=== PATIENT | male | born 2000 | race Hispanic/Latino ===

== ENCOUNTER 2020-09-19 13:33 | Emergency (ER) | payer SELFPAY ==
--- OUTSIDE RECORDS SUMMARY | 2020-09-19 13:36 | XMS REPORT | Continuity of Care Document ---
:2000 Author Organization [facility] t Address [address] [place] [address] [address]. [address] [place] [address] Care Team Providers Name Role Phone Lab, Fam Pob I Attending Clinician Unavailable Problems This patient has no known problems. Allergies, Adverse Reactions, Alerts This patient has no known allergies or adverse reactions. Medications This patient has no known medications. Procedures This patient has no known procedures. Encounters Start End Encounter Admission Attending Care Care Encounter Source Date/Time Date/Time Type Type Clinicians Facility Department ID 2020-03-10 2020-03-10 Laboratory Lab, [facility] [id number] 15:28:55 15:48:55 Only Fam Pob I [facility] [id number] [place] [id number] [phone] [address] Results This patient has no known results.
[2020-09-19 14:30] LABS: Absolute Lymphocytes (CBC) 2.6 K/uL (0.7-4.9); Basophils % 0.4 % (0-1.3); Lymphocytes % 25.8 % (15.3-44.8); MPV 8.4 fL (7.6-11.3); RBC Red Blood Cell Count 5.03 M/uL (4.33-5.43)
[2020-09-19 14:31] LABS: Protime INR 0.94
[2020-09-19 14:48] LABS: ALT/SGPT 72 U/L (12-78); AST/SGOT 28 U/L (15-37); Albumin 3.8 g/dL (3.4-5.0); Alkaline Phosphatase 117 U/L (45-117); BUN Blood Urea Nitrogen 8 mg/dL (7-18); Bicarbonate 26 mmol/L (21-32); Bilirubin Direct 0.1 mg/dL (0-0.2); Bilirubin Total 0.5 mg/dL (0.2-1.0); Glucose Level 96 mg/dL (74-106); Magnesium 2.2 mg/dL (1.8-2.4); NT PRO-BNP 27 pg/mL (<125); Potassium 3.7 mmol/L (3.5-5.1); Protein, Total 7.7 g/dL (6.4-8.2); Sodium Level 143 mmol/L (136-145); Troponin (Emerg Dept Use Only) < 0.02 ng/mL (0.0-0.045)
--- NOTE | 2020-09-19 14:54 | RAD REPORT ---
EXAM DESCRIPTION: RAD - Chest Single View - 09/19/2020 2:30 pm CLINICAL HISTORY: CHEST PAIN Chest pain. COMPARISON: No comparisons FINDINGS: Portable technique limits examination quality. The lungs are grossly clear. The heart is normal in size. No displaced fractures. IMPRESSION: No acute intrathoracic process suspected.
[2020-09-19 15:23] LABS: Barbiturates NEGATIVE (NEGATIVE); Benzodiazepines NEGATIVE (NEGATIVE); Cocaine NEGATIVE (NEGATIVE); METHAMPHETAM NEGATIVE (NEGATIVE); Methadone NEGATIVE (NEGATIVE); Opiates NEGATIVE (NEGATIVE); Phencyclidine NEGATIVE (NEGATIVE); THC Cannibis NEGATIVE (NEGATIVE)
[2020-09-19] MEDS ORDERED: KETOROLAC 30 MG/ML INJ ONE (15:35)
--- NOTE | 2020-09-19 15:46 | RAD REPORT ---
EXAM DESCRIPTION: CT - Angio Aorta For Dissection - 09/19/2020 3:30 pm CLINICAL HISTORY: Chest pain radiating to the back. left arm numbness;Chest pain COMPARISON: No comparisons TECHNIQUE: CT angiography of the aorta was performed with MIPs. All CT scans are performed using dose optimization technique as appropriate and may include automated exposure control or mA/KV adjustment according to patient size. FINDINGS: A left aortic arch is present with normal branching pattern of the great vessels.No acute aortic finding is seen such as aneurysm, penetrating ulcer or dissection. The celiac axis, SMA, LYLE and renal arteries are patent. No evidence of pulmonary embolism. The lungs are clear. The liver demonstrates no focal mass or biliary dilatation.The spleen, pancreas, adrenal glands and k idneys are within normal limits for arterial phase imaging. No bowel obstruction, free fluid or abscess.No pathologic enlarged lymphadenopathy identified. No fracture or worrisome bone lesion seen. IMPRESSION: No acute aortic finding is demonstrated.
--- NOTE | 2020-09-19 15:54 | EDPHYS ---
Physician Documentation [facility] Name: Levy Stanley Age: 20 yrs Sex: Male : 2000 Arrival Date: 09/19/2020 Time: 13:35 Bed 26 Private MD: ED Physician Holden Mercedes HPI: 09/19 14:05 This 20 yrs old Male presents to ER via Ambulatory with complaints of Chest cp Pressure, Numbness Of Arm. 14:05 The patient or guardian reports chest pain that is located primarily in the anterior cp chest wall, left. The pain radiates to the left shoulder, left neck. Associated signs and symptoms: Pertinent positives: numbness of left arm, Pertinent negatives: abdominal pain, cough, diaphoresis, headache, lower extremity pain, lower extremity swelling, near syncope, palpitations, shortness of breath, syncope, vomiting. The chest pain is described as a pressure. 14:05 Duration: The patient or guardian reports multiple episodes, that are intermittent. cp Patient reports initial episode of chest pain started this morning at 0730 while at work, went away and returned this afternoon. Pain continues in ED but is improved. Historical: - Allergies: 14:00 No Known Allergies; em - PMHx: 14:00 None; em - PSHx: 14:00 None; em - Immunization history:: Adult Immunizations up to date. - Social history:: Smoking status: Patient denies any tobacco usage or history of. ROS: 14:10 Constitutional: Negative for body aches, chills, fever, poor PO intake. cp 14:10 Eyes: Negative for injury, pain, redness, and discharge. cp 14:10 ENT: Negative for ear pain, sore throat, difficulty swallowing, difficulty handling cp secretions. 14:10 Cardiovascular: Positive for chest pain, Negative for edema, palpitations. 14:10 Respiratory: Negative for cough, shortness of breath, wheezing. 14:10 Abdomen/GI: Negative for abdominal pain, nausea, vomiting, and diarrhea, constipation. 14:10 Back: Negative for pain at rest, pain with movement, radiated pain. 14:10 : Negative for urinary symptoms, flank pain, testicular pain 14:10 Neuro: Positive for altered mental status, dizziness, headache, numbness, syncope, cp weakness, of the left arm. 14:10 All other systems are negative. Exam: 14:15 Constitutional: The patient appears in no acute distress, alert, awake, cp non-diaphoretic, non-toxic, well developed, well nourished. 14:15 Head/Face: Normocephalic, atraumatic. cp 14:15 Eyes: Periorbital structures: appear normal, Conjunctiva: normal, no exudate, no injection, Sclera: no appreciated abnormality, Lids and lashes: appear normal, bilaterally. 14:15 ENT: External ear(s): are unremarkable, Nose: is normal, Mouth: Lips: moist, Oral mucosa: moist, Posterior pharynx: Airway: no evidence of obstruction, patent. 14:15 Neck: ROM/movement: is normal, is supple, no meningismus, no nuchal rigidity. 14:15 Chest/axilla: Inspection: normal, Palpation: is normal, no crepitus, no tenderness. 14:15 Cardiovascular: Rate: normal, Rhythm: regular, Heart sounds: murmur, not appreciated, Edema: is not appreciated, JVD: is not appreciated. 14:15 Respiratory: the patient does not display signs of respiratory distress, Respirations: normal, no use of accessory muscles, no retractions, labored breathing, is not present, Breath sounds: are clear throughout, no decreased breath sounds, no stridor, no wheezing. 14:15 Abdomen/GI: Inspection: abdomen appears normal, Bowel sounds: active, all quadrants, Palpation: abdomen is soft and non-tender, in all quadrants. 14:15 Back: pain, is absent, ROM is normal. 14:15 Skin: no rash present. 14:15 Neuro: Orientation: to person, place \T\ time. Mentation: is normal, Cerebellar function: is grossly normal, Motor: moves all fours, strength is normal, Sensation: no obvious gross deficits. 14:17 ECG was reviewed by the Attending Physician. cp Vital Signs: 13:58 BP 139 / 76; Pulse 85; Resp 18; Temp 98.8; Pulse Ox 99% on R/A; Weight 92.53 kg; Height em 5 ft. 5 in. (165.10 cm); Pain 6/10; 14:59 BP 138 / 88 LA; ca1 14:59 BP 116 / 68 RA; ca1 15:53 BP 127 / 75; Pulse 71; Resp 16 S; Pulse Ox 100% on R/A; ca1 13:58 Body Mass Index 33.95 (92.53 kg, 165.10 cm) em MDM: 14:08 Patient medically screened. cp 14:30 Differential diagnosis: abnormal EKG, acute myocardial infarction, cholecystitis, cp Cholelithiasis costochondritis, pericarditis, pleurisy, pneumonia, pneumothorax, pulmonary embolus, thoracic aortic disection. 15:53 Data reviewed: vital signs, nurses notes, lab test result(s), EKG, radiologic studies, cp CT scan, plain films, and as a result, I will discharge patient. 15:53 Test interpretation: by ED physician or midlevel provider: ECG, plain radiologic cp studies. Counseling: I had a detailed discussion with the patient and/or guardian regarding: the historical points, exam findings, and any diagnostic results supporting the discharge/admit diagnosis, lab results, radiology results, to return to the emergency department if symptoms worsen or persist or if there are any questions or concerns that arise at home. 15:54 Special discussion: Based on the patient's history, exam, and Dx evaluation, there is cp no indication for emergent intervention or inpatient Tx. It is understood by the patient/guardian that if the Sx's persist or worsen they need to return immediately for re-evaluation. 09/19 14:02 Order name: Basic Metabolic Panel; Complete Time: 14:58 cp 09/19 14:58 Interpretation: Normal except: CL 108. cp 09/19 14:02 Order name: CBC with Diff; Complete Time: 14:58 cp 09/19 14:02 Order name: LFT's; Complete Time: 14:58 cp 09/19 14:59 Interpretation: Normal except: GLOB 3.9; A/G 1.0. cp 09/19 14:02 Order name: Magnesium; Complete Time: 14:58 cp 09/19 14:02 Order name: NT PRO-BNP; Complete Time: 14:58 cp 09/19 14:02 Order name: PT-INR; Complete Time: 14:58 cp 09/19 14:02 Order name: Troponin (emerg Dept Use Only); Complete Time: 14:58 cp 09/19 14:02 Order name: XRAY Chest (1 view); Complete Time: 14:58 cp 09/19 14:02 Order name: UDS; Complete Time: 15:47 cp 09/19 15:48 Interpretation: Reviewed. cp 02 14:08 Order name: D-Dimer; Complete Time: 15:47 cp 09/19 14:08 Order name: Lipase; Complete Time: 15:47 cp 09/19 15:03 Order name: CT Aorta for Dissection; Complete Time: 15:48 cp 09/19 16:11 Order name: Urine Dipstick--Ancillary (enter results) eb 09/19 14:02 Order name: EKG; Complete Time: 14:04 cp 09/19 14:02 Order name: Cardiac monitoring; Complete Time: 14:19 cp 09/19 14:02 Order name: EKG - Nurse/Tech; Complete Time: 14:12 cp 09/19 14:02 Order name: IV Saline Lock; Complete Time: 14:19 cp 09/19 14:02 Order name: Labs collected and sent; Complete Time: 14:19 cp 09/19 14:02 Order name: O2 Per Protocol; Complete Time: 14:19 cp 09/19 14:02 Order name: O2 Sat Monitoring; Complete Time: 14:19 cp 09/19 14:08 Order name: Blood Pressure Recheck: bilateral upper extremity; Complete Time: 14:59 cp EC:17 Rate is 73 beats/min. Rhythm is regular. AR interval is normal. QRS interval is normal. cp QT interval is normal. T waves are Inverted in leads III, aVR. Interpreted by me. Reviewed by me. Administered Medications: 15:20 Drug: TORadol - Ketorolac 15 mg Route: IVP; Site: right antecubital; ca1 16:00 Follow up: Response: No adverse reaction; Pain is decreased ca1 Disposition: 16:35 Co-signature as Attending Physician, Holden Mercedes MD. rn Disposition: 09/19/20 15:54 Discharged to Home. Impression: Other chest pain, Paresthesia of skin - Left Arm. - Condition is Stable. - Discharge Instructions: Nonspecific Chest Pain, Paresthesia. - Prescriptions for Ibuprofen 800 mg Oral Tablet - take 1 tablet by ORAL route every 8 hours As needed take with food; 30 tablet. - Medication Reconciliation Form, Thank You Letter, Antibiotic Education, Prescription Opioid Use, Work release form form. - Follow up: Private Physician; When: 2 - 3 days; Reason: Recheck today's complaints. - Problem is new. - Symptoms have improved. - Notes: May return to work with no restrictions 09-22-2020 Signatures: Dispatcher [employer] Karl Mendoza, RN RN Holden Lan MD MD rn Page, Corey, PA PA cp Nahun, Lexi, RN RN ca1 Corrections: (The following items were deleted from the chart) 16:14 15:54 09/19/2020 15:54 Discharged to Home. Impression: Other chest pain; Paresthesia of ca1 skin - Left Arm. Condition is Stable. Forms are Medication Reconciliation Form, Thank You Letter, Antibiotic Education, Prescription Opioid Use. Follow up: Private Physician; When: 2 - 3 days; Reason: Recheck today's complaints. Problem is new. Symptoms have improved. cp
--- NOTE | 2020-09-19 15:54 | ER ---
Nurse's Notes [facility] Name: Levy Stanley Age: 20 yrs Sex: Male : 2000 Arrival Date: 09/19/2020 Time: 13:35 Bed 26 Private MD: Diagnosis: Other chest pain;Paresthesia of skin-Left Arm Presentation: 09/19 13:58 Chief complaint: Patient states: left sided chest pain that started this morning at em 0730, also reports left sided arm numbness, denies N/V or fever. Coronavirus screen: Client denies travel out of the [place] in the last 14 days. Ebola Screen: Patient negative for fever greater than or equal to 101.5 degrees Fahrenheit, and additional compatible Ebola Virus Disease symptoms Patient denies exposure to infectious person. Patient denies travel to an Ebola-affected area in the 21 days before illness onset. No symptoms or risks identified at this time. Initial Sepsis Screen: Does the patient meet any 2 criteria? No. Patient's initial sepsis screen is negative. Does the patient have a suspected source of infection? No. Patient's initial sepsis screen is negative. Risk Assessment: Do you want to hurt yourself or someone else? Patient reports no desire to harm self or others. Onset of symptoms was September 19, 2020. 13:58 Method Of Arrival: Ambulatory em 13:58 Acuity: AGUSTIN 3 em Historical: - Allergies: 14:00 No Known Allergies; em - PMHx: 14:00 None; em - PSHx: 14:00 None; em - Immunization history:: Adult Immunizations up to date. - Social history:: Smoking status: Patient denies any tobacco usage or history of. Screenin:10 Abuse screen: Denies threats or abuse. Denies injuries from another. Nutritional ca1 screening: No deficits noted. Tuberculosis screening: No symptoms or risk factors identified. Fall Risk IV access (20 points). Assessment: 14:10 General: Appears in no apparent distress. comfortable, Behavior is calm, cooperative, ca1 appropriate for age. Pain: Complains of pain in anterior aspect of left upper chest Pain radiates to left arm Pain currently is 6 out of 10 on a pain scale. Pain began this morning Is intermittent. Neuro: Level of Consciousness is awake, alert, obeys commands, Oriented to person, place, time, situation, Appropriate for age. Cardiovascular: Heart tones S1 S2 present Capillary refill < 3 seconds Patient's skin is warm and dry. Rhythm is sinus rhythm. Respiratory: Airway is patent Respiratory effort is even, unlabored, Breath sounds are clear bilaterally. GI: Abdomen is round non-distended, Bowel sounds present X 4 quads. Abd is soft and non tender X 4 quads. : No signs and/or symptoms were reported regarding the genitourinary system. EENT: No signs and/or symptoms were reported regarding the EENT system. Derm: Skin is intact, is healthy with good turgor, Skin is pink, warm \T\ dry. Musculoskeletal: Circulation, motion, and sensation intact. Capillary refill < 3 seconds. 15:53 Reassessment: Patient appears in no apparent distress at this time. Patient and/or ca1 family updated on plan of care and expected duration. Pain level reassessed. Patient is alert, oriented x 3, equal unlabored respirations, skin warm/dry/pink. Vital Signs: 13:58 BP 139 / 76; Pulse 85; Resp 18; Temp 98.8; Pulse Ox 99% on R/A; Weight 92.53 kg; Height em 5 ft. 5 in. (165.10 cm); Pain 6/10; 14:59 BP 138 / 88 LA; ca1 14:59 BP 116 / 68 RA; ca1 15:53 BP 127 / 75; Pulse 71; Resp 16 S; Pulse Ox 100% on R/A; ca1 13:58 Body Mass Index 33.95 (92.53 kg, 165.10 cm) em ED Course: 13:35 Patient arrived in ED. as 14:00 Triage completed. em 14:00 Arm band placed on. em 14:02 Nelson Lyn PA is PHCP. cp 14:02 Holden Mercedes MD is Attending Physician. cp 14:03 Lexi Garnica RN is Primary Nurse. ca1 14:10 Patient has correct armband on for positive identification. Placed in gown. Bed in low ca1 position. Call light in reach. Side rails up X2. complex human resources manager on. Pulse ox on. NIBP on. Warm blanket given. 14:19 No provider procedures requiring assistance completed. Initial lab(s) drawn, by al, ca1 sent to lab. Inserted saline lock: 20 gauge in right antecubital area, using aseptic technique. Blood collected. Patient maintains SpO2 saturation greater than 95% on room air. 14:30 XRAY Chest (1 view) In Process Unspecified. EDMS 14:57 UDS Sent. ca1 15:30 CT Aorta for Dissection In Process Unspecified. EDMS 16:13 IV discontinued, intact, bleeding controlled, No redness/swelling at site. Pressure ca1 dressing applied. Administered Medications: 15:20 Drug: TORadol - Ketorolac 15 mg Route: IVP; Site: right antecubital; ca1 16:00 Follow up: Response: No adverse reaction; Pain is decreased ca1 Outcome: 15:54 Discharge ordered by MD. cp 16:14 Discharged to home ambulatory. ca1 16:14 Condition: stable 16:14 Discharge instructions given to patient, Instructed on discharge instructions, follow up and referral plans. medication usage, Demonstrated understanding of instructions, follow-up care, medications, Prescriptions given X 1. 16:14 Patient left the ED. ca1 Signatures: Dispatcher [employer] Karl Mendoza, RN RN Ciera Phillips Corey, PA PA cp Acob, Cheryl RN RN ca1
[2020-09-19 16:20] VITALS: TEMP 98.8
[2020-09-19 16:22] VITALS: BP 127/75; O2SAT 100
[2020-09-19 17:35] LABS: Urine Blood NEGATIVE (NEG); Urine Glucose NEGATIVE (NEG); Urine Protein NEGATIVE (NEG); Urine pH 7.5 (5.0-7.0)
== END 2020-09-19 16:14 | disposition home or self-care (01) ==
LOC: ER 13:33
DX: R20.2 Paresthesia of skin (principal)
CPT/HCPCS: 36415; 71045; 71275; 74175; 80048; 80076; 80307; 81003; 83690; 83735; 83880; 84484; 85025; 85379; 85610; 93005; 96374; 99285; Q9967

== ENCOUNTER 2021-10-13 17:44 | Emergency (ER) | payer SELFPAY ==
--- OUTSIDE RECORDS SUMMARY | 2021-10-13 17:47 | XMS REPORT | Continuity of Care Document ---
:2000 Author Organization [facility] t Address [address] [place] [address] Care Team Providers Name Role Phone PCP, DOES NOT HAVE A Primary Care Physician Unavailable Only, Db Test Attending Clinician Unavailable Ebrahim TICKET PRINTER Attending Clinician EBRAHIM Attending Clinician Unavailable Rene Argueta Attending Clinician MAXIM R Attending Clinician Unavailable Lab, Fam Pob I Attending Clinician Unavailable Lamin KEYESP Attending Clinician LAMIN Attending Clinician Unavailable Payers Payer Name Policy Type Policy Number Effective Date Expiration Date S ource TITLE V 0-100% [id number] 2014 00:00:00 MEDICAID [place] PENDING 2021 PENDING 00:00:00 Problems Condition Condition Condition Status Onset Resolution Last Treating Co mments Source Name Details Category Date Date Treatment Clinician Date No known No known Disease Unive rs active active ity of problems problems [facility] Allergies, Adverse Reactions, Alerts Allergy Allergy Status Severity Reaction(s) Onset Inactive Treating Comm ents Source Name Type Date Date Clinician NO KNOWN Drug Active Univers ALLERGIE Class ity of S [facility] Social History Social Habit Start Date Stop Date Quantity Comments Source Exposure to Yes University SARS-CoV-2 [facility] (event) Branch Alcohol intake 2021-08-05 2021-08-05 Current University of 00:00:00 00:00:00 non-drinker of [facility] alcohol Branch (finding) Tobacco Comment 2013-03-27 2013-03-27 no smoke Universit y of 00:00:00 00:00:00 exposure [facility] Tobacco use and 2013-03-27 2013-03-27 Never used Universit y of exposure 00:00:00 00:00:00 [facility] Sex Ass[birth year] At [birth year] Universit y of 00:00:00 00:00:00 [facility] Smoking Status Start Date Stop Date Source Never smoker [facility] Medications Ordered Filled Start Stop Current Ordering Indication Dosage Frequency Signature Comments Components Source Medication Medication Date Date Medication? Clinician (SIG) Name Name No known 2020-08 No Univers medications 2-22 ity of 17:16: [address] No known 2020-08 No Univers medications 2-22 ity of 17:16: [address] No known No Univers medications ity of [facility] Immunizations Ordered Immunization Filled Immunization Date Status Commen ts Source Name Name Influenza Virus 2014-06-18 Completed Universit y of Vaccine Quad Nasal 00:00:00 [facility] Meningococcal 2014-06-18 Completed University of Polysaccharide 00:00:00 [place] [facility] (groups A, C, Y and Branc h W-135) conjugate vaccine (MCV4P) Influenza Virus 2014-06-18 Completed Universit y of Vaccine Quad Nasal 00:00:00 [facility] Meningococcal 2014-06-18 Completed University of Polysaccharide 00:00:00 [facility] ankita (groups A, C, Y and Branc h W-135) conjugate vaccine (MCV4P) Influenza Virus 2014-06-18 Completed Universit y of Vaccine Quad Nasal 00:00:00 [facility] Meningococcal 2014-06-18 Completed University of Polysaccharide 00:00:00 [facility] ankita (groups A, C, Y and Branc h W-135) conjugate vaccine (MCV4P) Influenza Virus 2011-07-29 Completed Universit y of Vaccine - Whole 00:00:00 [facility] Influenza Virus 2011-07-29 Completed Universit y of Vaccine - Whole 00:00:00 [facility] Influenza Virus 2011-07-29 Completed Universit y of Vaccine - Whole 00:00:00 [facility] Varicella 2010-11-06 Completed University of (varivax)(chicken 00:00:[address] [facility] edical pox) Branch Varicella 2010-11-06 Completed University of (varivax)(chicken 00:00:00 [place] [facility] pox) [facility] HPV 2010-11-06 Completed University of 00:00:00 [facility] Branch HPV 2010-11-06 Completed University of 00:00:00 [facility] Branch Varicella 2010-11-06 Completed University of (varivax)(chicken 00:00:00 [place] [facility] pox) Branch HPV 2010-11-06 Completed University of 00:00:00 [facility] HPV 2010-01-27 Completed University of 00:00:00 [facility] Branch HPV 2010-01-27 Completed University of 00:00:00 [facility] HPV 2010-01-27 Completed University of 00:00:00 [facility] HEPATITIS A 2009-11-25 Completed University of 00:00:00 [facility] HPV 2009-11-25 Completed University of 00:00:00 [facility] Meningococcal Vaccine 2009-11-25 Completed Uni versity of 00:00:00 [facility] TDAP 2009-11-25 Completed University of 00:00:00 [facility] HEPATITIS A 2009-11-25 Completed University of 00:00:00 [facility] HPV 2009-11-25 Completed University of 00:00:00 [facility] Meningococcal Vaccine 2009-11-25 Completed Uni versity of 00:00:00 [facility] TDAP 2009-11-25 Completed University of 00:00:00 [facility] HEPATITIS A 2009-11-25 Completed University of 00:00:00 [facility] HPV 2009-11-25 Completed University of 00:00:00 [facility] Meningococcal Vaccine 2009-11-25 Completed Uni versity of 00:00:00 [facility] TDAP 2009-11-25 Completed University of 00:00:00 [facility] HEPATITIS A 2007-10-03 Completed University of 00:00:00 [facility] HEPATITIS A 2007-10-03 Completed University of 00:00:00 [facility] HEPATITIS A 2007-10-03 Completed University of 00:00:00 [facility] Hep B, Adol or Pedi 2003-07-17 Completed Unive rsity of Dosage 00:00:00 [facility] Hep B, Adol or Pedi 2003-07-17 Completed Unive rsity of Dosage 00:00:00 [facility] Hep B, Adol or Pedi 2003-07-17 Completed Unive rsity of Dosage 00:00:00 [facility] Hep B, Adol or Pedi 2003-03-26 Completed Unive rsity of Dosage 00:00:00 [facility] Hep B, Adol or Pedi 2003-03-26 Completed Unive rsity of Dosage 00:00:00 [facility] Hep B, Adol or Pedi 2003-03-26 Completed Unive rsity of Dosage 00:00:00 [facility] HIB 4 Dose Schedule 2002-11-06 Completed Unive rsity of 00:00:00 [facility] Branch Hep B, Adol or Pedi 2002-11-06 Completed Unive rsity of Dosage 00:00:00 [facility] HIB 4 Dose Schedule 2002-11-06 Completed Unive rsity of 00:00:00 [facility] Hep B, Adol or Pedi 2002-11-06 Completed Unive rsity of Dosage 00:00:00 [facility] HIB 4 Dose Schedule 2002-11-06 Completed Unive rsity of 00:00:00 [facility] Hep B, Adol or Pedi 2002-11-06 Completed Unive rsity of Dosage 00:00:00 [facility] DTAP 2002-10-09 Completed University of 00:00:00 [facility] MMR 2002-10-09 Completed University of 00:00:00 [facility] Pneumococcal 7 2002-10-09 Completed University of Conjugate, PCV7 00:00:00 [place] [facility] (Prevnar7) Branch Polio (IPV/OPV) 2002-10-09 Completed Universit y of 00:00:00 [facility] Varicella 2002-10-09 Completed University of (varivax)(chicken 00:00:00 [place] [facility] pox) Branch DTAP 2002-10-09 Completed University of 00:00:00 [facility] MMR 2002-10-09 Completed University of 00:00:00 [facility] Pneumococcal 7 2002-10-09 Completed University of Conjugate, PCV7 00:00:00 [place] [facility] (Prevnar7) Branch Polio (IPV/OPV) 2002-10-09 Completed Universit y of 00:00:00 [facility] Varicella 2002-10-09 Completed University of (varivax)(chicken 00:00:00 [place] [facility] pox) Branch DTAP 2002-10-09 Completed University of 00:00:00 [facility] MMR 2002-10-09 Completed University of 00:00:00 [facility] Pneumococcal 7 2002-10-09 Completed University of Conjugate, PCV7 00:00:00 [place] [facility] (Prevnar7) Branch Polio (IPV/OPV) 2002-10-09 Completed Universit y of 00:00:00 [facility] Branch Varicella 2002-10-09 Completed University of (varivax)(chicken 00:00:00 [place] [facility] pox) Branch DTAP 2000-10-03 Completed University of 00:00:00 [facility] Branch Polio (IPV/OPV) 2000-10-03 Completed Universit y of 00:00:00 [facility] DTAP 2000-10-03 Completed University of 00:00:00 [facility] Polio (IPV/OPV) 2000-10-03 Completed Universit y of 00:00:00 [facility] DTAP 2000-10-03 Completed University of 00:00:00 [facility] Polio (IPV/OPV) 2000-10-03 Completed Universit y of 00:00:00 [facility] MMR 1999-07-23 Completed University of 00:00:00 [facility] MMR 1999-07-23 Completed University of 00:00:00 [facility] MMR 1999-07-23 Completed University of 00:00:00 [facility] DTAP 1999-01-18 Completed University of 00:00:00 [facility] DTAP 1999-01-18 Completed University of 00:00:00 [facility] DTAP 1999-01-18 Completed University of 00:00:00 [facility] DTAP 1998 Completed University of 00:00:00 [facility] Polio (IPV/OPV) 1998 Completed Universit y of 00:00:00 [facility] DTAP 1998 Completed University of 00:00:00 [facility] Polio (IPV/OPV) 1998 Completed Universit y of 00:00:00 [facility] DTAP 1998 Completed University of 00:00:00 [facility] Branch Polio (IPV/OPV) 1998 Completed Universit y of 00:00:00 [facility] DTAP 1998 Completed University of 00:00:00 [facility] Polio (IPV/OPV) 1998 Completed Universit y of 00:00:00 [facility] Branch DTAP 1998 Completed University of 00:00:00 [facility] Polio (IPV/OPV) 1998 Completed Universit y of 00:00:00 [facility] Branch DTAP 1998 Completed University of 00:00:00 [facility] Polio (IPV/OPV) 1998 Completed Universit y of 00:00:00 [facility] Polio (IPV/OPV) 1998 Completed Universit y of 00:00:00 [facility] Polio (IPV/OPV) 1998 Completed Universit y of 00:00:00 [facility] Polio (IPV/OPV) 1998 Completed Universit y of 00:00:00 [facility] Polio (IPV/OPV) 1998 Completed Universit y of 00:00:00 [facility] Branch Polio (IPV/OPV) 1998 Completed Universit y of 00:00:00 [facility] Polio (IPV/OPV) 1998 Completed Universit y of 00:00:00 [facility] Branch Polio (IPV/OPV) 1998 Completed Universit y of 00:00:00 [facility] Branch Polio (IPV/OPV) 1998 Completed Universit y of 00:00:00 [facility] Branch Polio (IPV/OPV) 1998 Completed Universit y of 00:00:00 [facility] Vital Signs Vital Name Observation Time Observation Value Comments Source Systolic blood 2021-08-05 23:13:00 148 mm[Hg] Univer sity of pressure [facility] Diastolic blood 2021-08-05 23:13:00 85 mm[Hg] Unive rsity of pressure [facility] Heart rate 2021-08-05 23:13:00 97 /min [facility] Body temperature 2021-08-05 23:13:00 36.89 Keren [facility] rate 2021-08-05 23:13:00 18 /min [facility] Body weight 2021-08-05 23:13:00 104.327 kg [facility] Oxygen saturation in 2021-08-05 23:13:00 98 /min University of Arterial blood by [facility] Pulse oximetry [place] Procedures Procedure Date / Time Performed Performing Clinician Sour e NOTICE OF PRIVACY 2021-08-05 23:00:32 Doctor Unassigned, No Univ [facility] PRACTICES Name [facility] CONSENT/REFUSAL FOR 2021-08-05 23:00:09 [facility] Un[facility], [facility] AND Name [facility] TREATMENT Encounters Start End Encounter Admission Attending Care Care Encounter Source Date/Time Date/Time Type Type Clinicians Facility Department ID 2021-08-28 2021-08-28 Laboratory Only, Ang Db Test [facility] [id number] Univers 12:45:00 13:00:00 Only Mihai Caroline [facility] [id number] ity of [place] [id number] Apolinar as TRAVIS?BLEA [id number] Mo alejo BRICENO [address] [place] [facility] 2021-08-28 2021-08-28 Outpatient R [facility] [id number] Univers 12:45:00 12:45:00 [id number] ity [facility] 2021-08-28 2021-08-28 Outpatient R [facility], [facility] [id number] Univers 12:45:00 12:45:[facility] 2021-[facility]-05 2021-08-05 Emergency [facility] [id number] Univers 17:15:00 17:43:00 Albaro R [place] [id number] i [id number] [id number] [facility] 084 Branch 2021-08-05 2021-08-[address] [facility] ERT [id number] Univers 17:15:00 17:43:00 ALBARO ity of [facility] 2020-03-10 2020-03-10 Laboratory Lab, Adc Fam Pob I [place] [id number] Univers 15:28:55 15:48:55 Only [email or web address] [id number] ity of [place] [id number] Apolinar as Professio [phone] Mo dical nal [address] Branch [address] 2020-03-10 2020-03-10 Laboratory Lab, Adc [place] [id number] 15:28:55 15:48:55 Only Fam Pob I Health [id number] [place] [id number] Professio [id number] [place] [address] [address] 2020-03-10 2020-03-10 Outpatient Rene KIMBLE [facility] [id number] 15:20:00 15:20:00 GEORGIE mcintosh [facility] Results This patient has no known results.
[2021-10-13 18:21] LABS: Urine Blood Negative (Negative); Urine Glucose Negative (Negative); Urine Protein Negative (Negative)
[2021-10-13 18:24] LABS: Absolute Lymphocytes (CBC) 0.8 K/uL (0.7-4.9); Lymphocytes % 5.9 % (15.3-44.8); MPV 8.3 fL (7.6-11.3); RBC Red Blood Cell Count 5.23 M/uL (4.33-5.43)
[2021-10-13] MEDS ORDERED: NA CHLORIDE 0.9% 1,000 ML ONE ×2 (18:24→20:10)
[2021-10-13] MEDS ORDERED: KETOROLAC 30 MG/ML INJ ONE (18:24)
[2021-10-13 18:28] LABS: Urine Bacteria <20 /HPF (NONE SEEN); Urine Mucus 1+ /HPF (NONE SEEN); Urine RBC <5 /HPF (NONE SEEN)
[2021-10-13 18:36] LABS: BUN Blood Urea Nitrogen 10 mg/dL (7-18); Bicarbonate 23 mmol/L (21-32); Glucose Level 108 mg/dL (74-106); Potassium 3.7 mmol/L (3.5-5.1); Sodium Level 137 mmol/L (136-145)
[2021-10-13 18:39] LABS: Protime INR 1.14
[2021-10-13] MEDS ORDERED: ACETAMINOPHEN 500 MG TAB ONE (18:41)
[2021-10-13 18:45] LABS: ALT/SGPT 72 U/L (12-78); AST/SGOT 28 U/L (15-37); Alkaline Phosphatase 101 U/L (45-117); Bilirubin Direct 0.2 mg/dL (0-0.2); Bilirubin Total 0.5 mg/dL (0.2-1.0); NT PRO-BNP 93 pg/mL (<125)
[2021-10-13 19:01] LABS: Blood Morphology Comment NOT SEEN (NOT SEEN); Platelet Estimate ADEQ; White Blood Cell Scan OK (OK)
--- NOTE | 2021-10-13 19:13 | RAD REPORT ---
EXAM DESCRIPTION: Kendra Single View3 7:06 pm CLINICAL HISTORY: cough COMPARISON: 2020 FINDINGS: The lungs appear clear of acute infiltrate. The heart is normal size IMPRESSION: No acute abnormalities displayed
[2021-10-13 19:44] LABS: SARS-COV-2 RT PCR NEGATIVE (NEGATIVE)
--- NOTE | 2021-10-13 21:10 | EDPHYS ---
Physician Documentation [facility] Name: Levy Stanley Age: 21 yrs Sex: Male : 2000 Arrival Date: 10/13/2021 Time: 17:46 Bed 23 Private MD: ED Physician Greg Omalley HPI: 10/13 18:10 This 21 yrs old Male presents to ER via Ambulatory with complaints of Chest cp Pain, Back Pain, Headache, Cough. 18:10 The patient or guardian reports cough, with no sputum. cp 18:10 Onset: The symptoms/episode began/occurred yesterday. cp 18:10 Associated signs and symptoms: Pertinent positives: chest pain, with cough, fever, cp headache, Pertinent negatives: diarrhea, vomiting. 18:10 Severity of symptoms: in the emergency department the symptoms are unchanged, despite cp home interventions. Historical: - Allergies: 18:00 No Known Allergies; ss7 - Home Meds: 18:00 None [Active]; ss7 - PMHx: 18:00 None; ss7 - PSHx: 18:00 None; ss7 - Immunization history:: Adult Immunizations Flu vaccine is up to date. - Social history:: Smoking status: Patient reports the use of cigarette tobacco products. ROS: 18:15 Constitutional: Positive for body aches, chills, fever, Negative for poor PO intake. cp 18:15 Eyes: Negative for injury, pain, redness, and discharge. cp 18:15 ENT: Positive for sore throat, Negative for drainage from ear(s), ear pain, difficulty swallowing, difficulty handling secretions. 18:15 Cardiovascular: Positive for chest pain. 18:15 Respiratory: Positive for cough, with no reported sputum, shortness of breath, Negative for wheezing. 18:15 Abdomen/GI: Negative for vomiting, diarrhea, constipation. 18:15 Back: Positive for pain at rest, pain with movement. 18:15 : Negative for urinary symptoms. 18:15 Skin: Negative for rash. 18:15 Neuro: Positive for headache, Negative for altered mental status, weakness. 18:15 All other systems are negative. Exam: 18:00 ECG was reviewed by the Attending Physician. cp 18:20 Constitutional: The patient appears in no acute distress, alert, awake, cp non-diaphoretic, non-toxic, well developed, well nourished, appears mildly ill 18:20 Head/Face: Normocephalic, atraumatic. cp 18:20 Eyes: Periorbital structures: appear normal, Conjunctiva: normal, no exudate, no injection, Sclera: no appreciated abnormality, Lids and lashes: appear normal, bilaterally. 18:20 ENT: External ear(s): are unremarkable, Ear canal(s): are normal, clear, TM's: dullness, bilaterally, Nose: is normal, Mouth: Lips: moist, Oral mucosa: moist, Posterior pharynx: Airway: no evidence of obstruction, patent, Tonsils: no enlargement, no exudate, swelling, is not appreciated, erythema, that is mild, exudate, is not appreciated. 18:20 Neck: ROM/movement: is normal, is supple, without pain, no range of motions limitations, no meningismus, Lymph nodes: no appreciated lymphadenopathy. 18:20 Chest/axilla: Inspection: normal, Palpation: is normal, no crepitus, no tenderness. 18:20 Cardiovascular: Rate: tachycardic, Rhythm: regular, Edema: is not appreciated, JVD: is not appreciated. 18:20 Respiratory: the patient does not display signs of respiratory distress, Respirations: normal, no use of accessory muscles, no retractions, labored breathing, is not present, Breath sounds: bronchial sounds, that are mild, are heard diffusely, stridor, is not appreciated, wheezing: is not appreciated. 18:20 Abdomen/GI: Inspection: abdomen appears normal, Palpation: abdomen is soft and non-tender, in all quadrants. 18:20 Back: pain, that is mild, ROM is normal. 18:20 Skin: cellulitis, is not appreciated, no rash present. 18:20 Neuro: Orientation: to person, place \\T\\ time. Mentation: is normal, Motor: moves all fours, strength is normal, Sensation: is normal. Vital Signs: 17:58 BP 123 / 77; Pulse 128; Resp 20; Temp 101.7; Pulse Ox 95% ; Weight 104.33 kg; Height 5 ss7 ft. 6 in. (167.64 cm); 19:30 BP 146 / 70; Pulse 119; Resp 20; Temp 100; Pulse Ox 96% ; ss7 21:22 BP 120 / 77; Pulse 86; Resp 18; Pulse Ox 97% on R/A; lr4 17:58 Body Mass Index 37.12 (104.33 kg, 167.64 cm) ss7 MDM: 17:51 Patient medically screened. cp 18:30 Differential Diagnosis: Bronchitis Influenza Viral Syndrome Pneumonia Other COVID-19, cp sepsis. 21:08 Data reviewed: vital signs, nurses notes, lab test result(s). cp 21:08 Test interpretation: by ED physician or midlevel provider: ECG, plain radiologic cp studies. Counseling: I had a detailed discussion with the patient and/or guardian regarding: the historical points, exam findings, and any diagnostic results supporting the discharge/admit diagnosis, lab results, radiology results, to return to the emergency department if symptoms worsen or persist or if there are any questions or concerns that arise at home. Response to treatment: the patient's symptoms have markedly improved after treatment, patient is well hydrated. and as a result, I will discharge patient. 10/13 18:08 Order name: CBC with Diff; Complete Time: 19:16 cp 10/13 19:16 Interpretation: Normal except: WBC 12.90; SONNY% 88.0; LYM% 5.9; NEUT A 11.3. cp 10/13 18:08 Order name: LFT's; Complete Time: 19:16 cp 10/13 18:08 Order name: Magnesium; Complete Time: 19:16 cp 10/13 18:08 Order name: NT PRO-BNP; Complete Time: 19:16 cp 10/13 18:08 Order name: PT-INR; Complete Time: 19:16 cp 10/13 18:08 Order name: Troponin HS; Complete Time: 19:16 cp 10/13 18:08 Order name: XRAY Chest (1 view); Complete Time: 19:16 cp 10/13 19:16 Interpretation: Report review. cp 10/13 18:08 Order name: D-Dimer; Complete Time: 19:16 cp 10/13 18:08 Order name: COVID-19/FLU A+B (Document "Date of Onset" if Symptomatic); Complete Time: cp 19:59 10/13 19:59 Interpretation: Normal except: INFLUENZA A POSITIVE. cp 10/13 18:08 Order name: Urine Microscopic Only; Complete Time: 19:16 cp 10/13 18:08 Order name: Basic Metabolic Panel; Complete Time: 19:16 EDMS 10/13 21:04 Interpretation: Normal except: CL 108; GLUC 108. cp 10/13 18:20 Order name: Urine Dipstick-Ancillary; Complete Time: 19:16 EDMS 10/13 19:01 Order name: CBC Smear Scan; Complete Time: 19:16 EDMS 10/13 18:08 Order name: EKG; Complete Time: 18:09 cp 10/13 18:08 Order name: Cardiac monitoring; Complete Time: 18:34 cp 10/13 18:08 Order name: EKG - Nurse/Tech; Complete Time: 18:34 cp 10/13 18:08 Order name: IV Saline Lock; Complete Time: 18:34 cp 10/13 18:08 Order name: Labs collected and sent; Complete Time: 18:34 cp 10/13 18:08 Order name: O2 Per Protocol; Complete Time: 18:34 cp 10/13 18:08 Order name: O2 Sat Monitoring; Complete Time: 18:34 cp 10/13 18:08 Order name: Urine Dipstick-Ancillary (obtain specimen); Complete Time: 18:33 cp 10/13 21:05 Order name: PO challenge; Complete Time: 21:08 cp EC:00 Rate is 125 beats/min. Rhythm is regular. MS interval is normal. QRS interval is cp normal. QT interval is normal. Interpreted by me. Reviewed by me. Administered Medications: 18:33 Drug: NS 0.9% 1000 ml Route: IV; Rate: 1 bolus; Site: right antecubital; ss7 19:33 Follow up: IV Status: Completed infusion lr4 18:33 Drug: Ketorolac 15 mg Route: IVP; Site: right antecubital; ss7 21:34 Follow up: Response: No adverse reaction; Pain is decreased lr4 18:51 Drug: Tylenol 1000 mg Route: PO; ss7 21:34 Follow up: Response: Pain is decreased lr4 20:12 Drug: NS 0.9% 1000 ml Route: IV; Rate: 1 bolus; Site: right antecubital; ss7 21:08 Follow up: IV Status: Completed infusion lr4 21:19 Drug: Tamiflu (oseltamivir) 75 mg Route: PO; lr4 21:33 Follow up: Response: No adverse reaction lr4 Disposition Summary: 10/13/21 21:09 Discharge Ordered Location: Home cp Problem: new cp Symptoms: have improved cp Condition: Stable cp Diagnosis - Influenza due to identified novel influenza A virus cp Followup: cp - With: Private Physician - When: 2 - 3 days - Reason: Worsening of condition Discharge Instructions: - Discharge Summary Sheet cp - Influenza, Adult, Qenm-oc-Pcsc cp Forms: - Medication Reconciliation Form cp - Thank You Letter cp - Antibiotic Education cp - Prescription Opioid Use cp Prescriptions: - Tamiflu 75 mg Oral Capsule - take 1 tablet by ORAL route every 12 hours for 5 days; 10 tablet; Refills: 0, cp Product Selection Permitted - Bromfed DM 2-30-10 mg/5 mL Oral syrup - take 10 milliliter by ORAL route every 6 hours; 180 milliliter; Refills: 0, cp Product Selection Permitted - Zofran 4 mg Oral Tablet - take 1 tablet by ORAL route every 12 hours As needed; 20 tablet; Refills: 0, cp Product Selection Permitted Signatures: Dispatcher [employer] EDMS Nelson Lyn PA PA cp Monique Marquez, RN RN ss7 Mariya August RN RN lr4 Corrections: (The following items were deleted from the chart) 18:34 18:09 BASIC METABOLIC PANEL+C.LAB.BRZ ordered. EDMS EDMS
--- NOTE | 2021-10-13 21:10 | ER ---
Nurse's Notes [facility] Name: Levy Stanley Age: 21 yrs Sex: Male : 2000 Arrival Date: 10/13/2021 Time: 17:46 Bed 23 Private MD: Diagnosis: Influenza due to identified novel influenza A virus Presentation: 10/13 17:58 Chief complaint: Patient states: 21yo HM present for fatigue, fever, nausea and ss7 vomiting that began after work on yesterday. Denies any ill contacts. Covid + 2-3 months ago. Coronavirus screen: Vaccine status: Patient reports being unvaccinated. Ebola Screen: No symptoms or risks identified at this time. Initial Sepsis Screen: Does the patient meet any 2 criteria? Temp <36.0*C (96.8*F)) or > 38.3*C (100.9*F). No. Patient's initial sepsis screen is negative. Does the patient have a suspected source of infection? No. Patient's initial sepsis screen is negative. Risk Assessment: Do you want to hurt yourself or someone else? Patient reports no desire to harm self or others. 17:58 Method Of Arrival: Ambulatory [facility] 17:58 Acuity: AGUSTIN 3 7 18:02 Onset of symptoms was October 12, 2021. 7 Triage Assessment: 18:00 General: Appears in no apparent distress. uncomfortable, Behavior is calm, cooperative, ss7 appropriate for age. Pain: Denies pain. EENT: No deficits noted. Neuro: No deficits noted. Cardiovascular: Denies Heart tones S1 S2 Capillary refill < 3 seconds Rhythm is sinus tachycardia. Respiratory: Reports cough that is Onset: The symptoms/episode began/occurred yesterday, Denies shortness of breath. GI: Reports nausea, vomiting. : No deficits noted. Derm: No deficits noted. Musculoskeletal: No deficits noted. Historical: - Allergies: 18:00 No Known Allergies; ss7 - Home Meds: 18:00 None [Active]; ss7 - PMHx: 18:00 None; ss7 - PSHx: 18:00 None; ss7 - Immunization history:: Adult Immunizations Flu vaccine is up to date. - Social history:: Smoking status: Patient reports the use of cigarette tobacco products. Screenin:02 Abuse screen: Denies threats or abuse. Nutritional screening: No deficits noted. ss7 Tuberculosis screening: No symptoms or risk factors identified. Fall Risk Assessment: 18:02 General: SEE TRIAGE. ss7 18:04 Pain: Complains of pain in chest Pain does not radiate. Aggravated by DEEP BREATHING. ss7 21:19 Reassessment: Patient states feeling better. Patient states symptoms have improved. Pt lr4 departed ed ambulatory with all personal effects, pt in nad. Pain: Complains of pain in abdomen. Vital Signs: 17:58 BP 123 / 77; Pulse 128; Resp 20; Temp 101.7; Pulse Ox 95% ; Weight 104.33 kg; Height 5 ss7 ft. 6 in. (167.64 cm); 19:30 BP 146 / 70; Pulse 119; Resp 20; Temp 100; Pulse Ox 96% ; ss7 21:22 BP 120 / 77; Pulse 86; Resp 18; Pulse Ox 97% on R/A; lr4 17:58 Body Mass Index 37.12 (104.33 kg, 167.64 cm) 7 ED Course: 17:46 Patient arrived in ED. mr 17:48 Nelson Lyn PA is PHCP. cp 17:48 Greg Omalley MD is Attending Physician. cp 17:57 Monique Marquez, KATALINA is Primary Nurse. 7 18:00 Triage completed. 7 18:00 Arm band placed on Emesis basin given. ss7 18:02 Patient has correct armband on for positive identification. Bed in low position. Call 7 light in reach. workers' compensation magistrate on. Pulse ox on. NIBP on. 18:02 No provider procedures requiring assistance completed. Inserted saline lock: 20 gauge ss7 in left antecubital area, using aseptic technique. Patient maintains SpO2 saturation greater than 95% on room air. 18:09 Basic Metabolic Panel Sent. 7 18:09 COVID-19/FLU A+B (Document "Date of Onset" if Symptomatic) Sent. 7 18:09 D-Dimer Sent. 7 18:09 CBC with Diff Sent. 7 18:33 Basic Metabolic Panel Sent. 7 18:33 COVID-19/FLU A+B (Document "Date of Onset" if Symptomatic) Sent. 7 18:33 D-Dimer Sent. 7 18:34 LFT's Sent. ss7 18:34 Magnesium Sent. ss7 18:34 NT PRO-BNP Sent. ss7 18:34 PT-INR Sent. ss7 18:34 Troponin HS Sent. ss7 19:06 XRAY Chest (1 view) In Process Unspecified. EDMS 21:21 IV discontinued, intact, bleeding controlled, No redness/swelling at site. Pressure lr4 dressing applied. Administered Medications: 18:33 Drug: NS 0.9% 1000 ml Route: IV; Rate: 1 bolus; Site: right antecubital; ss7 19:33 Follow up: IV Status: Completed infusion lr4 18:33 Drug: Ketorolac 15 mg Route: IVP; Site: right antecubital; ss7 21:34 Follow up: Response: No adverse reaction; Pain is decreased lr4 18:51 Drug: Tylenol 1000 mg Route: PO; ss7 21:34 Follow up: Response: Pain is decreased lr4 20:12 Drug: NS 0.9% 1000 ml Route: IV; Rate: 1 bolus; Site: right antecubital; ss7 21:08 Follow up: IV Status: Completed infusion lr4 21:19 Drug: Tamiflu (oseltamivir) 75 mg Route: PO; lr4 21:33 Follow up: Response: No adverse reaction lr4 Outcome: 21:09 Discharge ordered by MD. horne 21:21 Discharged to home lr4 21:21 Condition: good 21:21 Discharge instructions given to patient, family. 21:33 Patient left the ED. lr4 Signatures: Dispatcher [employer] EDNH Fady Le mr Nelson Lyn PA PA cp Smith, Shana, RN RN 7 Mariya August RN RN lr4 Corrections: (The following items were deleted from the chart) 18:34 18:09 BASIC METABOLIC PANEL+C.LAB.BRZ drawn and sent. 7 EDMS
[2021-10-13] MEDS ORDERED: OSELTAMIVIR 75 MG CAP ONE (21:13)
[2021-10-13 21:58] VITALS: TEMP 100
[2021-10-13 22:00] VITALS: BP 120/77; O2SAT 97
--- NOTE | 2021-10-14 11:08 | EKG ---
Test Date: 2021-10-13 Test Time: 17:53:13 Developmental Writing Instructor: HÉCTOR MEASUREMENT RESULTS: Intervals: Rate: 125 NJ: 144 QRSD: 78 QT: 302 QTc: 435 [place]: P: 35 NJ: 144 QRS: 27 T: 47 INTERPRETIVE STATEMENTS: Sinus tachycardia Otherwise normal ECG Compared to ECG 09/19/2020 14:08:35 Sinus rhythm no longer present Electronically Signed On 10-14-21 11:07:14 WARDROBE STYLIST by Emanuel Rutherford
== END 2021-10-13 21:33 | disposition home or self-care (01) ==
LOC: ER 17:44
DX: J10.1 Influenza due to other identified influenza virus with other respiratory manifestations (principal); Z20.822 Contact with and (suspected) exposure to COVID-19; Z72.0 Tobacco use
CPT/HCPCS: 0240U; 36415; 71045; 80048; 80076; 81003; 81015; 83735; 83880; 84484; 85025; 85379; 85610; 93005; 96361; 96374; 99285; J7030

== ENCOUNTER 2022-03-10 19:26 | Emergency (ER) | payer SELFPAY ==
--- NOTE | 2022-03-10 21:51 | ER ---
Nurse's Notes [facility] Name: Levy Stanley Age: 21 yrs Sex: Male : 2000 Arrival Date: 03/10/2022 Time: 19:29 Bed Treatment Private MD: Diagnosis: Viral infection, unspecified;Generalized arthralgias and myalgias Presentation: 03/10 19:47 Chief complaint: Patient states: PATIENT REPORTS HIS KIDS TO HAVE HAD STREP LAST WEEK bh1 AND HE STARTED FEELING BAD A COUPLE DAYS AGO. HE ADMITS TO HAVING A SORE THROAT, BACK PAIN AND CONGESTION AT THIS TIME. Coronavirus screen: Vaccine status: Patient reports being unvaccinated. congestion, cough unrelated to allergies, fatigue, headache, muscle pain, sore throat. Ebola Screen: Patient negative for fever greater than or equal to 101.5 degrees Fahrenheit, and additional compatible Ebola Virus Disease symptoms. Resp Distress? No respiratory distress is noted at this time. Initial Sepsis Screen: Does the patient meet any 2 criteria? No. Patient's initial sepsis screen is negative. Does the patient have a suspected source of infection? No. Patient's initial sepsis screen is negative. Risk Assessment: Do you want to hurt yourself or someone else? Patient reports no desire to harm self or others. Onset of symptoms was March 10, 2022. 19:47 Method Of Arrival: Ambulatory [facility] 19:47 Acuity: AGUSTIN 4 [facility] Triage Assessment: 19:49 General: Appears in no apparent distress. ill, Behavior is calm, cooperative, bh1 appropriate for age. Pain: Complains of pain in back. Respiratory: Breath sounds are clear bilaterally. Historical: - Allergies: 19:49 NKDA; 1 - Home Meds: 19:49 None [Active]; bh1 - PMHx: 19:49 None; bh1 - PSHx: 19:49 None; [facility] - Immunization history:: Adult Immunizations up to date. - Social history:: Smoking status: Patient denies any tobacco usage or history of. Screenin:42 Abuse screen: Denies threats or abuse. Nutritional screening: No deficits noted. bb Tuberculosis screening: No symptoms or risk factors identified. Fall Risk None identified. Assessment: 20:42 General: Appears in no apparent distress. Behavior is calm, cooperative. Neuro: Level bb of Consciousness is awake, alert, obeys commands, Oriented to person, place, time, situation. Cardiovascular: Capillary refill < 3 seconds Patient's skin is warm and dry. Respiratory: Respiratory effort is even, unlabored. GI: No signs and/or symptoms were reported involving the gastrointestinal system. Derm: Skin is pink, warm \\T\\ dry. Musculoskeletal: Circulation, motion, and sensation intact. Vital Signs: 19:47 BP 134 / 77; Pulse 100; Resp 20; Temp 98.6(O); Pulse Ox 97% on R/A; Weight 108.86 kg; 1 Height 5 ft. 5 in. (165.10 cm); Pain 5/10; 22:11 BP 135 / 88; Pulse 82; Resp 18; Pulse Ox 100% on R/A; sm5 19:47 Body Mass Index 39.94 (108.86 kg, 165.10 cm) [facility] ED Course: 19:29 Patient arrived in ED. [facility] 19:47 Flu Sent. [facility] 19:47 Strep Sent. [facility] 19:47 COVID-19 SARS RT PCR (Document "Date of Onset" if Symptomatic) Sent. [facility] 19:49 Triage completed. [facility] 19:49 Arm band placed on right wrist. [facility] 20:42 Soniya Bradley, RN is Primary Nurse. bb 20:42 No provider procedures requiring assistance completed. bb 20:42 Patient has correct armband on for positive identification. Bed in low position. Call bb light in reach. 20:53 Doni Quintero MD is Attending Physician. kdr 22:12 Patient did not have IV access during this emergency room visit. 5 Administered Medications: No medications were administered Medication: 20:42 VIS not applicable for this client. bb Outcome: 21:50 Discharge ordered by . kdr 22:12 Discharged to home ambulatory, with significant other. sm5 22:12 Condition: stable 22:12 Discharge instructions given to patient, significant other, Instructed on discharge instructions, follow up and referral plans. Demonstrated understanding of instructions, follow-up care. 22:12 Patient left the ED. 5 Signatures: Doni Quintero MD MD kdr Ballard, Brenda, RN RN Linda Richardson Sarah, RN RN [facility] Davida Chandler RN RN [facility]
--- NOTE | 2022-03-10 21:51 | EDPHYS ---
Physician Documentation [facility] Name: Levy Stanley Age: 21 yrs Sex: Male : 2000 Arrival Date: 03/10/2022 Time: 19:29 Bed Treatment Private MD: ED Physician Doni Quintero HPI: 03/11 04:34 This 21 yrs old Male presents to ER via Ambulatory with complaints of kdr Congestion, Back Pain. 04:39 Patient reports that he has had a sore throat, back pain and some congestion for the kdr last couple of days. He indicated that his family at his kids have also had similar symptoms over the past week. He is nontoxic-appearing on initial presentation. Onset: The symptoms/episode began/occurred gradually, just prior to arrival, 2 day(s) ago. Historical: - Allergies: 03/10 19:49 NKDA; bh1 - Home Meds: 19:49 None [Active]; bh1 - PMHx: 19:49 None; bh1 - PSHx: 19:49 None; bh1 - Immunization history:: Adult Immunizations up to date. - Social history:: Smoking status: Patient denies any tobacco usage or history of. ROS: 03/11 04:39 Constitutional: Negative for fever, chills, and weight loss, he has had generalized kdr myalgias and arthralgias Eyes: Negative for injury, pain, redness, and discharge, Neck: Negative for injury, pain, and swelling, Cardiovascular: Negative for chest pain, palpitations, and edema, Respiratory: Negative for shortness of breath, cough, wheezing, and pleuritic chest pain, Abdomen/GI: Negative for abdominal pain, nausea, vomiting, diarrhea, and constipation, Back: Negative for injury and pain, : Negative for injury, bleeding, discharge, and swelling, MS/Extremity: Negative for injury and deformity, Skin: Negative for injury, rash, and discoloration. Exam: 04:39 Constitutional: This is a well developed, well nourished patient who is awake, alert, kdr and in no acute distress. Vital Signs: 03/10 19:47 BP 134 / 77; Pulse 100; Resp 20; Temp 98.6(O); Pulse Ox 97% on R/A; Weight 108.86 kg; bh1 Height 5 ft. 5 in. (165.10 cm); Pain 5/10; 22:11 BP 135 / 88; Pulse 82; Resp 18; Pulse Ox 100% on R/A; sm5 19:47 Body Mass Index 39.94 (108.86 kg, 165.10 cm) [facility] MDM: 21:50 Patient medically screened. kdr 03/11 06:11 Data reviewed: vital signs, nurses notes, lab test result(s), radiologic studies. kdr Counseling: I had a detailed discussion with the patient and/or guardian regarding: the historical points, exam findings, and any diagnostic results supporting the discharge/admit diagnosis, lab results, radiology results, the need for outpatient follow up. 03/10 19:42 Order name: COVID-19 SARS RT PCR (Document "Date of Onset" if Symptomatic); Complete [facility] Time: 21:35 03/10 19:42 Order name: Flu; Complete Time: 21:35 [facility] 03/10 19:42 Order name: Strep; Complete Time: 21:35 [facility] 03/10 20:40 Order name: Throat Culture EDMS Administered Medications: No medications were administered Disposition Summary: 03/10/22 21:50 Discharge Ordered Location: Home kdr Problem: new kdr Symptoms: have improved kdr Condition: Stable kdr Diagnosis - Viral infection, unspecified kdr - Generalized arthralgias and myalgias kdr Followup: kdr - With: Private Physician - When: 2 - 3 days - Reason: If symptoms return, Further diagnostic work-up, Recheck today's complaints, Continuance of care, Re-evaluation by your physician Discharge Instructions: - Discharge Summary Sheet kdr - Viral Respiratory Infection kdr - Viral Illness, Adult kdr Forms: - Medication Reconciliation Form kdr - Thank You Letter kdr - Work release form 5 Signatures: Dispatcher [employer] EDMS Doni Quintero MD MD kdr Davida Chandler RN RN [facility]
[2022-03-10 23:28] VITALS: TEMP 98.6
[2022-03-10 23:33] VITALS: BP 135/88; O2SAT 100
== END 2022-03-10 22:12 | disposition home or self-care (01) ==
LOC: ER 19:26
DX: B34.9 Viral infection, unspecified (principal); J02.9 Acute pharyngitis, unspecified; M54.50 Low back pain, unspecified; M79.10 Myalgia, unspecified site; Z20.822 Contact with and (suspected) exposure to COVID-19
CPT/HCPCS: 87070; 87081; 87804; 99283; U0003

== ENCOUNTER 2024-09-16 12:31 | Emergency (ER) | payer SELFPAY ==
--- OUTSIDE RECORDS SUMMARY | 2024-09-16 12:34 | XMS REPORT | Continuity of Care Document ---
Author Name Unknown Address [address] [place] [address] [facility] Address [address] [place] [address] Care Team Providers Care Sales Agent Trading [employer] Name Role Phone PCP, PATIENT DOES NOT HAVE A Primary Care Physic shannan Unavailable Only, Ang Db Test Attending Clinician Unavailabl Sylvia Jean Attending Clinician SYLVIA ALLEN Attending Clinician Unavailable HOLLY PAN Attending Clinician Unavailable Holly Argueta Attending Clinician [phone] Lab, Adc Fam Pob I Attending Clinician Unavailab Georgie Houston Attending Clinician [phone] GEORGIE KIMBLE Attending Clinician Unavailable Payers Payer Name Policy Type Policy Number Effective Date Expirati on Date Source TITLE V [id number] 2014 00:00:00 MEDICAID [place] PENDING PENDING 2021 00:00:00 Problems Condition Name Condition Details Condition Category Status Onset Date Resolution Date Last Treatment Date Treating Clinician Comments Source No known active problems No known active problems Disease [facility] Allergies, Adverse Reactions, Alerts Allergy Name Allergy Type Status Severity Reaction(s) Onset Date Inactive Date Treating Clinician Comments Source NO KNOWN ALLERGIE S Drug Class Active [facility] Social History Social Habit Start Date Stop Date Quantity Comments Source Exposure to SARS-CoV-2 (event) Yes [facility] Alcohol intake 2021-08-05 00:00:00 2021-08-05 00:00:00 Current non-drinker of alcohol (finding) [facility] Tobacco Comment 2013-03-27 00:00:00 2013-03-27 00:00:[address] [facility] Tobacco use and exposure 2013-03-27 00:00:00 2013-03-27 00:00:[address] [facility] Sex Assigned At 2000 00:00:00 2000 00:00:00 [facility] Smoking Status Start Date Stop Date Source Never smoker [facility] Medications Ordered Medication Name Filled Medication Name Start Date Stop Date Current Medication? Ordering Clinician Indication Dosage Frequency Signature (SIG) Comments Components Source No known medications 2020-08 17:16: 16 No [facility] No known medications No Un anni [facility] Vital Signs Vital Name Observation Time Observation Value Comments S ource Systolic blood pressure 2021-08-05 23:13:00 148 mm[Hg] [facility] Diastolic blood pressure 2021-08-05 23:13:00 85 mm[Hg] [facility] Heart rate 2021-08-05 23:13:00 97 /min [facility] Body temperature 2021-08-05 23:13:[address] [facility] Respiratory rate 2021-08-05 23:13:00 18 /min [facility] Body weight 2021-08-05 23:13:00 104.327 kg [facility] Oxygen saturation in Arterial blood by Pulse oximetry 2021-08-05 23:13:00 98 /min [facility] Procedures Procedure Date / Time Performed Performing Clinicia n Source NOTICE OF PRIVACY PRACTICES 2021-08-05 23:00:32 Doctor Unassigned, Athalia [facility] CONSENT/REFUSAL FOR DIAGNOSIS AND TREATMENT 2021-08-05 23:00:09 Doctor Unassigned, Athalia [facility] Encounters Start Date/Time End Date/Time Encounter Type Admission Type Attending Clinicians Care Facility Care Department Encounter ID Source 2024-06-28 16:52:06 2024-06-28 16:52:06 Outpatient [facility] [id number] Gabe Courtney 2024-06-05 14:06:07 2024-06-05 14:06:07 Outpatient [facility] [id number] Gabe Courtney 2024-03-22 14:27:59 2024-03-22 14:27:59 Outpatient [facility] [id number] Gabe Courtney 2024-03-15 15:04:05 2024-03-15 15:04:05 Outpatient [facility] [id number] Gabe Courtney 2021-08-28 12:45:00 2021-08-28 13:00:00 Laboratory Only Only, [facility] 1..114 [id number] [facility] 2021-08-28 12:45:00 2021-08-28 12:45:00 Outpatient R SYLVIA ALLEN [facility] [id number] [facility] 2021-08-05 17:15:00 2021-08-05 17:43:00 Emergency X HOLLY PAN [facility] ERT [id number] [facility] 2021-08-05 17:15:00 2021-08-05 17:43:00 Emergency Holly Pan [facility] 1.114 [id number] [facility] 2020-03-10 15:28:55 2020-03-10 15:48:55 Laboratory Only Lab, Adc Fam Pob I Georgie Kimble [facility] [address] 1..114 [id number] [facility] 2020-03-10 15:28:55 2020-03-10 15:48:55 Laboratory Only Lab, Adc Fam Pob I [facility] [address] [id number] 2020-03-10 15:20:00 2020-03-10 15:20:00 Outpatient GEORGIE CHOE [facility] [id number] [facility]
--- NOTE | 2024-09-16 15:05 | RAD REPORT ---
EXAM: Knee Right 3 View INDICATION: PAIN COMPARISON: None FINDINGS: No acute fracture. No significant knee effusion. No significant focal degenerative changes. Other: n/a IMPRESSION: No evidence of acute osseous abnormality involving the imaged knee.
[2024-09-16] MEDS ORDERED: TDAP (DIPHTH,PERTUSS(ACELL),TET VAC) 0.5 ML VIAL IMVAC ONE (15:29)
[2024-09-16] MEDS ORDERED: LIDOCAINE 2% W/EPI 1:200,000 MPF 20 ML VIAL IM ONE (15:29)
--- NOTE | 2024-09-16 15:54 | ER ---
Nurse's Notes [facility] Name: Levy Stanley Age: 24 yrs Sex: Male : 2000 Arrival Date: 09/16/2024 Time: 12:31 Bed 7 Private MD: Diagnosis: Laceration without foreign body of knee-right Presentation: 09/16 13:26 Chief complaint: Patient states: Laceration to right knee s/p fall/ Pt states that he cm10 slipped and fell this morning at approximately 10AM. Bleeding controlled at this time. Coronavirus screen: Client denies travel out of the [place] in the last 14 days. Ebola Screen: Patient denies travel to an Ebola-affected area in the 21 days before illness onset. Complicating Factors: There are no complicating factors for this patient. Initial Sepsis Screen: Does the patient meet any 2 criteria? No. Patient's initial sepsis screen is negative. Does the patient have a suspected source of infection? No. Patient's initial sepsis screen is negative. Risk Assessment: Do you want to hurt yourself or someone else? Patient reports no desire to harm self or others. Onset of symptoms was September 16, 2024. 13:26 Method Of Arrival: Ambulatory cm10 13:26 Acuity: AGUSTIN 4 cm10 Triage Assessment: 13:27 General: Appears in no apparent distress. comfortable, Behavior is calm, cooperative. cm10 Pain: Complains of pain in right knee. Neuro: No deficits noted. Level of Consciousness is awake, alert, obeys commands, Oriented to person, place, time, situation, Appropriate for age. Respiratory: No deficits noted. Airway is patent Respiratory effort is even, unlabored, Respiratory pattern is regular, symmetrical. Injury Description: Laceration sustained to right knee is clean, 0.5 to 2.5 cm long, not bleeding. Historical: - Allergies: 13:27 NKDA; cm10 - Home Meds: 13:27 None [Active]; cm10 - PMHx: 13:27 None; cm10 - PSHx: 13:27 None; cm10 - Immunization history:: Adult Immunizations up to date, Last tetanus immunization: < 5 years ago. - Infectious Disease History:: Denies. - Social history:: Smoking status: Patient denies any tobacco usage or history of. Screenin:11 [facility] ED Fall Risk Assessment (Adult) History of falling in the last 3 months, ld1 including since admission No falls in past 3 months (0 pts) Confusion or Disorientation No (0 pts) Intoxicated or Sedated No (0 pts) Impaired Gait No (0 pts) Mobility Assist Device Used No (0 pt) Altered Elimination No (0 pt) Score/Fall Risk Level 0 - 2 = Low Risk Oriented to surroundings, Hourly rounding (assess needs \T\ fall precautionary measures) done. Abuse screen: Denies threats or abuse. Denies injuries from another. Nutritional screening: No deficits noted. Tuberculosis screening: No symptoms or risk factors identified. Assessment: 14:00 General: Appears in no apparent distress. comfortable, Behavior is calm, cooperative, ld1 appropriate for age. 14:00 Pain: Denies pain. Neuro: Level of Consciousness is awake, alert, obeys commands, ld1 Oriented to person, place, time, situation, Appropriate for age. Cardiovascular: Capillary refill < 3 seconds Patient's skin is warm and dry. Respiratory: Airway is patent Respiratory effort is even, unlabored. GI: Abdomen is flat, non-distended. : No signs and/or symptoms were reported regarding the genitourinary system. EENT: No signs and/or symptoms were reported regarding the EENT system. Derm: No signs and/or symptoms reported regarding the dermatologic system. Musculoskeletal: No signs and/or symptoms reported regarding the musculoskeletal system. Injury Description: Laceration sustained to right leg and right knee. Vital Signs: 13:26 BP 116 / 96; Pulse 81; Resp 15; Temp 96.9(TE); Pulse Ox 100% on R/A; Weight 90.72 kg; cm10 Height 5 ft. 4 in. ; Pain 1/10; 14:00 BP 109 / 76; Pulse 81; Resp 18; Pulse Ox 100% on R/A; ld1 15:15 BP 117 / 81; Pulse 84; Resp 18; Pulse Ox 96% on R/A; ld1 13:26 Body Mass Index 34.33 (90.72 kg, 162.56 cm) cm10 13:26 Pain Scale: Adult cm10 ED Course: 12:35 Patient arrived in ED. al6 12:41 Nelson Lyn PA is PHCP. cp 12:41 Holden Mercedes MD is Attending Physician. cp 13:27 Triage completed. cm10 13:27 Arm band placed on left wrist. Patient placed in waiting room. cm10 14:52 Nica Freire, RN is Primary Nurse. ld1 15:04 XRAY Knee RIGHT 3 view In Process Unspecified. EDMS 16:11 Patient has correct armband on for positive identification. Placed in gown. Bed in low ld1 position. Call light in reach. Side rails up X2. Pulse ox on. NIBP on. Door closed. Noise minimized. 16:11 Assist provider with laceration repair on right leg and right knee using sutures. Set ld1 up tray. Performed by Nelson DUNLAP Dressed with 4X4s, Kerlix, Patient tolerated well. 16:12 Patient did not have IV access during this emergency room visit. ld1 Administered Medications: 15:32 Drug: Boostrix Tdap IM 0.5 ml IM once; as a single dose Route: IM; Site: left deltoid; bp 16:10 Follow up: Response: No adverse reaction ld1 15:32 Drug: Lidocaine Infiltration (2 %) 10 ml 5 ml Infiltration once; with epinephrine bp Volume: 5 ml; Route: Infiltration; Medication: 16:11 VIS not applicable for this client. ld1 Outcome: 15:54 Discharge ordered by MD. cp 16:12 Discharged to home ambulatory, ld1 16:12 Condition: stable 16:12 Discharge instructions given to patient, Instructed on discharge instructions, follow up and referral plans. medication usage, Demonstrated understanding of instructions, follow-up care, medications, Prescriptions given X 2, 16:12 Patient left the ED. ld1 Signatures: Dispatcher [employer] EDMS Nelson Lyn PA PA Zoltan Forman, RN RN bp Nica Freire, RN RN ld1 Dee Dee Pope RN RN cm10 Mary Collins al6
--- NOTE | 2024-09-16 15:54 | EDPHYS ---
Physician Documentation [facility] Name: Levy Stanley Age: 24 yrs Sex: Male : 2000 Arrival Date: 09/16/2024 Time: 12:31 Bed 7 Private MD: ED Physician Holden Mercedes HPI: 09/16 13:45 This 24 yrs old Male presents to ER via Ambulatory with complaints of cp Laceration To Leg - right knee. 13:45 The patient has a laceration slip and fall at home on wet floor causing patient to land cp onto right knee. The laceration(s) is(are) located on the right knee. Onset: The symptoms/episode began/occurred today. Associated signs and symptoms: The patient has no apparent associated signs or symptoms. Historical: - Allergies: 13:27 NKDA; cm10 - Home Meds: 13:27 None [Active]; cm10 - PMHx: 13:27 None; cm10 - PSHx: 13:27 None; cm10 - Immunization history:: Adult Immunizations up to date, Last tetanus immunization: < 5 years ago. - Infectious Disease History:: Denies. - Social history:: Smoking status: Patient denies any tobacco usage or history of. ROS: 13:50 Constitutional: history per hpi cp 13:50 MS/extremity: Positive for laceration, swelling, tenderness, of the right knee, Negative for decreased range of motion, deformity, 13:50 All other systems are negative, Exam: 13:55 Constitutional: The patient appears in no acute distress, alert, awake, non-toxic, well cp developed, well nourished, 13:55 Head/Face: Normocephalic, atraumatic. cp 13:55 Eyes: Periorbital structures: appear normal, Conjunctiva: normal, no exudate, no injection, Lids and lashes: appear normal, bilaterally, 13:55 Neck: ROM/movement: is normal, is supple, without pain, no range of motions limitations, 13:55 Chest/axilla: Inspection: normal, 13:55 Cardiovascular: Rate: normal, 13:55 Respiratory: the patient does not display signs of respiratory distress, Respirations: normal, no use of accessory muscles, no retractions, labored breathing, is not present, 13:55 Abdomen/GI: Exam negative for discomfort, distension, guarding, Inspection: abdomen appears normal, 13:55 Back: pain, is absent, ROM is normal, 13:55 Musculoskeletal/extremity: Extremities: noted in the right knee: laceration noted anterior to patella, mild swelling, tenderness to palpation with no crepitus noted, full AROM, Vital Signs: 13:26 BP 116 / 96; Pulse 81; Resp 15; Temp 96.9(TE); Pulse Ox 100% on R/A; Weight 90.72 kg; cm10 Height 5 ft. 4 in. ; Pain 1/10; 14:00 BP 109 / 76; Pulse 81; Resp 18; Pulse Ox 100% on R/A; ld1 15:15 BP 117 / 81; Pulse 84; Resp 18; Pulse Ox 96% on R/A; ld1 13:26 Body Mass Index 34.33 (90.72 kg, 162.56 cm) cm10 13:26 Pain Scale: Adult cm10 Laceration: 15:55 Wound Repair of 3cm ( 1.2in ) subcutaneous laceration to right knee. Linear shaped.. cp Distal neuro/vascular/tendon intact. Anesthesia: Wound infiltrated with 5 mls of 2% lidocaine. Wound prep: Moderate cleansing by me. Skin closed with 1 4-0 Prolene using running sutures. Dressed with Bacitracin, 4x4's. Patient tolerated well. MDM: 13:28 Medical Screening Exam initiated cp 15:54 Data reviewed: vital signs, nurses notes, radiologic studies, plain films, and as a cp result, I will discharge patient. 15:54 Differential diagnosis: superficial laceration, tendon injury, vascular injury. I cp considered the following discharge prescriptions or medication management in the emergency department Medications were administered in the Emergency Department. See MAR. Independent interpretation of the following test(s) in the Emergency Department X-Ray: My interpretation is xrays of right knee negative for fracture. 09/16 13:33 Order name: XRAY Knee RIGHT 3 view; Complete Time: 15:14 cp 09/16 13:33 Order name: Dressing - Wound; Complete Time: 15:02 cp 09/16 13:33 Order name: Gloves, Sterile; Complete Time: 15:02 cp 09/16 13:33 Order name: Setup Suture Tray; Complete Time: 15:02 cp 09/16 15:52 Order name: Wound dressing; Complete Time: 16:10 cp 09/16 15:52 Order name: Edis wrap-joint; Complete Time: 16:10 cp Administered Medications: 15:32 Drug: Boostrix Tdap IM 0.5 ml IM once; as a single dose Route: IM; Site: left deltoid; bp 16:10 Follow up: Response: No adverse reaction ld1 15:32 Drug: Lidocaine Infiltration (2 %) 10 ml 5 ml Infiltration once; with epinephrine bp Volume: 5 ml; Route: Infiltration; Disposition Summary: 09/16/24 15:54 Discharge Ordered Notes: Location: Home cp Condition: Stable cp Diagnosis - Laceration without foreign body of knee - right cp Followup: cp - With: Private Physician - When: 10 - 14 days - Reason: Staple/Suture removal Discharge Instructions: - Discharge Summary Sheet cp - Laceration Care, Adult cp Forms: - Medication Reconciliation Form cp - Antibiotic Education cp - Prescription Opioid Use cp - Patient Portal Instructions cp - Leadership Thank You Letter cp Prescriptions: - Anaprox DS 550 mg Oral Tablet - take 1 tablet ORAL route every 12 hours As needed; 20 tablet; Refills: 0, cp Product Selection Permitted - Cephalexin 500 mg Oral Capsule - take 1 capsule ORAL route every 8 hours for 10 days; 30 capsule; Refills: 0, cp Product Selection Permitted Signatures: Dispatcher [employer] EDMS Nelson Lyn PA PA cp Zoltan Walters, RN RN Dee Dee Balbuena RN RN cm10 Nica Freire RN ld1 Corrections: (The following items were deleted from the chart) 09/17 15:20 15:19 MS/extremity: Positive for laceration, swelling, tenderness, of the right knee, cp Negative for decreased range of motion, deformity, cp 15:20 15:19 Constitutional: history per hpi cp cp 15:20 15:19 All other systems are negative, cp cp 15:24 09/16 16:25 Wound Repair of 3cm ( 1.2in ) subcutaneous laceration to right knee. Linear cp shaped.. Distal neuro/vascular/tendon intact. Anesthesia: Wound infiltrated with 5 mls of 2% lidocaine. Wound prep: Moderate cleansing by me. Skin closed with 1 4-0 Prolene using running sutures. Dressed with Bacitracin, 4x4's. Patient tolerated well. cp
[2024-09-16 16:32] VITALS: TEMP 96.9
[2024-09-16 16:35] VITALS: BP 117/81; O2SAT 96
== END 2024-09-16 16:12 | disposition home or self-care (01) ==
LOC: ER 12:31
DX: S81.011A Laceration without foreign body, right knee, initial encounter (principal)
CPT/HCPCS: 12002; 96372; 99284